=== PATIENT | male | born 1970 | race Caucasian/White ===

== ENCOUNTER 2021-11-08 10:25 | Emergency (ER) | payer SELFPAY ==
[~2021-11-08] VITALS: Ht 182.9 cm; Wt 95.5 kg
[2021-11-08 10:35] VITALS: TEMP 98.2
[2021-11-08] MEDS ORDERED: CLEOCIN HCL300 MG PO (11:29)
[2021-11-08] MEDS ORDERED: AMOXICILLIN 8751 TAB PO (11:29)
[2021-11-08 11:40] VITALS: BP 136/93; PULSE 73
== END 2021-11-08 11:40 | disposition home or self-care (01) ==
LOC: COL.ER 10:25
DX: L03.213 Periorbital cellulitis (principal); Z28.310 Unvaccinated for COVID-19